=== PATIENT | female | born 1995 | race Caucasian/White ===

== ENCOUNTER 2023-12-02 09:18 | Emergency (ER) | payer OTHER ==
[2023-12-02 10:22] LABS: BASOPHILS # (AUTO) 0.1 10^3/uL (0.0-0.1); BASOPHILS % (AUTO) 1.3 %; EOSINOPHILS % (AUTO) 0.7 %; HCT - HEMATOCRIT 37.9 % (37.0-47.0); HGB - HEMOGLOBIN 12.9 g/dL (12.0-16.0); LYMPHOCYTES # (AUTO) 1.6 10^3/uL (1.5-3.5); LYMPHOCYTES % (AUTO) 25.9 %; MEAN CORPUSCULAR HEMOGLOBIN 31.3 pg (27.0-31.0); MEAN PLATELET VOLUME 8.6 fL (7.9-10.8); MONOCYTES # (AUTO) 0.5 10^3/uL (0.0-1.0); MONOCYTES % (AUTO) 7.8 %; NEUTROPHILS # (AUTO) 3.9 10^3/uL (1.5-6.6); NEUTROPHILS % (AUTO) 64.1 %; PLT - PLATELET COUNT 266 10^3/uL (130-450); RED BLOOD COUNT 4.12 10^6/uL (4.20-5.40); RED CELL DISTRIBUTION WIDTH 12.5 % (12.0-15.0)
[2023-12-02 10:41] LABS: ALBUMIN 4.5 g/dL (3.2-5.5); ALBUMIN/GLOBULIN RATIO 1.9 (1.0-2.2); BILIRUBIN,TOTAL 0.4 mg/dL (0.2-1.0); CALCIUM 9.6 mg/dL (8.5-10.3); CREATININE 0.8 mg/dL (0.6-1.3); TOTAL PROTEIN 6.9 g/dL (6.4-8.9)
--- NOTE | 2023-12-02 11:02 | Ultrasound Report ---
PROCEDURE: OB 1st Trimester w/TV INDICATIONS: 6 weeks with vaginal bleeding OUTSIDE/PRIOR DATING DATA: Last menstrual period (LMP): 10/17/2023. LMP-based estimated date of delivery (YANET): 07/23/2024. TECHNIQUE: Real-time scanning was performed of the fetus and maternal pelvic organs, with image documentation. Endovaginal scanning was also performed to better visualize the fetus and maternal ovaries. COMPARISON: None. FINDINGS: A possible small gestational sac is present in the cervical region. Embryo: No pole or yolk sac is seen. Gestational sac diameter is 7.4 mm. Estimated gestational age is 5 weeks, 3 days. Heart rate: Not detected. Other: No perigestational fluid collection. Measurement variability in dating: +/- 4 weeks by LMP, +/- 7 days by mean sac diameter (use before 6 weeks gestation if crown-rump length not able to be measured), +/- 5 days by crown-rump length (6-12 weeks gestation). Maternal organs: Ovaries appear within normal limits. IMPRESSION: Possible small gestational sac within endocervical canal without pole or cardiac activity . Finding is suggestive of spontaneous in progress, please correlate with serial beta-hCGs a nd follow-up study. Reviewed by: Alfonso Metcalf MD on 12/02/2023 11:01 AM PDT Approved by: Alfonso Metcalf MD on 12/02/2023 11:01 AM PDT Station ID: [id number]
--- NOTE | 2023-12-02 11:05 | ED Physician Documentation ---
PD HPI FEMALE - Stated complaint Stated Complaint: ,SPOTTING - Chief complaint Chief Complaint: Abd Pain - History obtained from History obtained from: Patient - History of Present Illness Timing - onset: How many hours ago (is with EGA 6w4d by dates with positive home preg test week or so ago. Has referral to [facility] in [place]. Onset cramps and vag bleeding this AM. Heavy bleeding initially. Moderate cramping.), Today Timing - duration: Hours Timing - details: Abrupt onset, Still present, Waxing and waning Associated symptoms: Pelvic pain, Vaginal bleeding. 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 (3), P (1), Miscarriage(s) (1) PD PAST MEDICAL HISTORY - Past Medical History Past Medical History: No - Past Surgical History Past Surgical History: No - Allergies Allergies/Adverse Reactions: Allergies Allergy/AdvReac Type Severity Reaction Status Date / Time No Known Drug Allergies Allergy Verified 12/02/23 09:30 - Social History Does the pt smoke?: No Smoking Status: Never smoker Does the pt drink ETOH?: No Does the pt have substance abuse?: No - Immunizations Immunizations are current?: No - POLST Patient has POLST: No PD ED PE NORMAL - Vitals Vital signs reviewed: Yes - General General: Alert and oriented X 3, No acute distress, Well developed/nourished - Cardiac Cardiac: RRR, No murmur - Respiratory Respiratory: Clear bilaterally - Female Female : Deferred - Derm Derm: Normal color, Warm and dry Results - Vitals Vitals: Vital Signs - 24 hr 12/02/23 12/02/23 09:28 11:56 Temperature 36.4 C L Heart Rate 77 80 Respiratory 20 16 Rate Blood Pressure 139/70 H 117/69 O2 Saturation 97 99 Oxygen O2 Source Room air - Labs Labs: Laboratory Tests 12/02/23 12/02/23 12/02/23 10:13 10:13 10:13 WBC 6.0 RBC 4.12 L Hgb 12.9 Hct 37.9 MCV 92.0 MCH 31.3 H MCHC 34.0 RDW 12.5 Plt Count 266 MPV 8.6 Neut # (Auto) 3.9 Lymph # (Auto) 1.6 [place] # (Auto) 0.5 Eos # (Auto) 0.0 Baso # (Auto) 0.1 Absolute Nucleated RBC 0.00 Nucleated RBC % 0.0 Sodium 140 Potassium 4.0 Chloride 108 Carbon Dioxide 26 Anion Gap 6.0 BUN 16 Creatinine 0.8 Estimated GFR (MDRD) 86 L Glucose 94 Calcium 9.6 Total Bilirubin 0.4 AST 14 ALT 12 Alkaline Phosphatase 45 Total Protein 6.9 Albumin 4.5 Globulin 2.4 Albumin/Globulin Ratio 1.9 Lipase 40 Beta HCG, Quant Blood Type O POSITIVE 12/02/23 10:13 WBC RBC Hgb Hct MCV MCH MCHC RDW Plt Count MPV Neut # (Auto) Lymph # (Auto) [place] # (Auto) Eos # (Auto) Baso # (Auto) Absolute Nucleated RBC Nucleated RBC % Sodium Potassium Chloride Carbon Dioxide Anion Gap BUN Creatinine Estimated GFR (MDRD) Glucose Calcium Total Bilirubin AST ALT Alkaline Phosphatase Total Protein Albumin Globulin Albumin/Globulin Ratio Lipase Beta HCG, Quant 3.0 Blood Type - Rads (name of study) OB pelvic US Relevant Findings:: Prelim report reviewed, Other (US Tech: no IUP. Adnexa normal. There is gestational sac c/w 5w3d without pole in cervical canal c/w miscarriage in process. ) PD Medical Decision Making - ED course Complexity details: reviewed results (Pt with minimal quant HCG of 5, with normal adnexa and apparent gestational sac without pole in cervical canal c/w miscarriage in process (with presumed prior IUFD given low quant).Pt had heavy bleeding initially that has tapered much. ), d/w patient, d/w mainframe consultant (Dr. Feliz (sp?), OB in [place] and updated on indings. She will have office contact pt for followup later this week. ) Departure - Departure Disposition: 01 Home, Self Care Clinical Impression: Incomplete miscarriage Condition: Stable Record reviewed to determine appropriate education?: Yes Instructions: ED Miscarriage Incom Follow-Up: [facility] [Provider Group] Comments: This appears to be an incomplete miscarriage. Your quantitative hCG and the blood test was quite low to almost non levels. This would suggest the miscarriage started with the fetus demise and is now subsequently clearing/miscarrying. The ultrasound showed what look like a gestational sac without a pole in the cervix. Presumption would be to will continue to pass out through the cervix over the next day or two. Tylenol ibuprofen if needed for pains or cramps. Stay well-hydrated. Try to follow-up with the [facility] office to which she had been referred for follow-up visit later this week to ensure it does completely clear. Risks for retained miscarriage would be cramping bleeding and infection. Stay well-hydrated. Return to the ER if you have significant bleeding or pain or develop fevers. I will try to contact the [facility] office in [place] to expect to hear from you. As of this moment, they have not called back as yet. Forms: PCP List Discharge Date/Time: 12/02/23 11:58
[2023-12-02 12:14] VITALS: BP 117/69; O2SAT 99
== END 2023-12-02 11:58 | disposition home or self-care (01) ==
LOC: ED 09:18
DX: O03.4 Incomplete spontaneous abortion without complication (principal)
CPT/HCPCS: 36415; 80053; 83690; 84702; 85025; 86900; 86901; 99284

== ENCOUNTER 2024-01-27 15:04 | Emergency (ER) | payer OTHER ==
[2024-01-27 16:34] LABS: BASOPHILS # (AUTO) 0.1 10^3/uL (0.0-0.1); BASOPHILS % (AUTO) 0.7 %; EOSINOPHILS # (AUTO) 0.1 10^3/uL (0.0-0.7); EOSINOPHILS % (AUTO) 1.2 %; HGB - HEMOGLOBIN 13.5 g/dL (12.0-16.0); LYMPHOCYTES # (AUTO) 2.2 10^3/uL (1.5-3.5); MEAN CORPUSCULAR HEMOGLOBIN 30.8 pg (27.0-31.0); MEAN CORPUSCULAR HGB CONC 33.8 g/dL (32.0-36.0); MEAN CORPUSCULAR VOLUME 91.1 fL (81.0-99.0); MEAN PLATELET VOLUME 8.5 fL (7.9-10.8); MONOCYTES # (AUTO) 0.5 10^3/uL (0.0-1.0); MONOCYTES % (AUTO) 5.7 %; NEUTROPHILS # (AUTO) 5.8 10^3/uL (1.5-6.6); NEUTROPHILS % (AUTO) 67.2 %; PLT - PLATELET COUNT 281 10^3/uL (130-450); RED BLOOD COUNT 4.39 10^6/uL (4.20-5.40); RED CELL DISTRIBUTION WIDTH 12.1 % (12.0-15.0); WHITE BLOOD COUNT 8.6 x10^3/uL (4.8-10.8)
--- NOTE | 2024-01-27 16:45 | ED Physician Documentation ---
History of Present Illness - Stated complaint Stated Complaint: ,ABD CRAMPS - Chief complaint Chief Complaint: Abd Pain - History obtained from History obtained from: Patient - History of Present Illness Timing: How many days ago (2) - Additonal information Additional information: Patient is a 28-year-old female, 3 para 1 who presents to the emergency department stating she has had vaginal bleeding. She believes that she is about 6 weeks . She states 2 days ago the bleeding was bright red, today it is dark red. She had a miscarriage in November at approximately 5 weeks. She also has a young child at home. She is followed by OB and [facility]. She has mild abdominal cramping. Review of Systems Constitutional: denies: Fever, Chills Respiratory: denies: Cough, Wheezing Skin: denies: Rash Musculoskeletal: denies: Neck pain, Back pain Neurologic: denies: Headache PD PAST MEDICAL HISTORY - Past Medical History Past Medical History: No - Past Surgical History Past Surgical History: No - Allergies Allergies/Adverse Reactions: Allergies Allergy/AdvReac Type Severity Reaction Status Date / Time No Known Drug Allergies Allergy Verified 01/27/24 15:22 - Social History Does the pt smoke?: No Smoking Status: Never smoker Does the pt drink ETOH?: No Does the pt have substance abuse?: No - Immunizations Immunizations are current?: No - POLST Patient has POLST: No PD ED PE NORMAL - Vitals Vital signs reviewed: Yes - General General: Alert and oriented X 3, No acute distress - HEENT HEENT: PERRL, Moist mucous membranes - Neck Neck: Supple, no meningeal sign - Cardiac Cardiac: RRR, Strong equal pulses - Respiratory Respiratory: No respiratory distress, Clear bilaterally - Abdomen Abdomen: Soft, Non tender, Non distended - Derm Derm: Warm and dry - Neuro Neuro: Alert and oriented X 3 - Psych Psych: Normal mood, Normal affect Results - Vitals Vitals: Vital Signs - 24 hr 01/27/24 01/27/24 15:22 17:25 Temperature 36.3 C L 36.5 C Heart Rate 78 72 Respiratory 18 16 Rate Blood Pressure 112/73 110/72 O2 Saturation 98 100 Oxygen O2 Source Room air - Labs Labs: Laboratory Tests 01/27/24 01/27/24 01/27/24 16:29 16:29 16:29 WBC 8.6 RBC 4.39 Hgb 13.5 Hct 40.0 MCV 91.1 MCH 30.8 MCHC 33.8 RDW 12.1 Plt Count 281 MPV 8.5 Neut # (Auto) 5.8 Lymph # (Auto) 2.2 [place] # (Auto) 0.5 Eos # (Auto) 0.1 Baso # (Auto) 0.1 Absolute Nucleated RBC 0.00 Nucleated RBC % 0.0 Sodium 136 Potassium 3.5 Chloride 104 Carbon Dioxide 24 Anion Gap 8.0 BUN 10 Creatinine 0.7 Estimated GFR (MDRD) 100 Glucose 108 H Calcium 9.5 Total Bilirubin 0.3 AST 14 ALT 11 Alkaline Phosphatase 45 Total Protein 6.6 Albumin 4.5 Globulin 2.1 Albumin/Globulin Ratio 2.1 Lipase 38 Beta HCG, Quant Urine Color Urine Clarity Urine pH Ur Specific [place] Urine Protein Urine Glucose (UA) Urine Ketones Urine Occult Blood Urine Nitrite Urine Bilirubin Urine Urobilinogen Ur Leukocyte Esterase Urine RBC Urine WBC Ur Squamous Epith Cells Amorphous Sediment Urine Bacteria Ur Microscopic Review Urine Culture Comments Blood Type O POSITIVE 01/27/24 01/27/24 16:29 18:28 WBC RBC Hgb Hct MCV MCH MCHC RDW Plt Count MPV Neut # (Auto) Lymph # (Auto) [place] # (Auto) Eos # (Auto) Baso # (Auto) Absolute Nucleated RBC Nucleated RBC % Sodium Potassium Chloride Carbon Dioxide Anion Gap BUN Creatinine Estimated GFR (MDRD) Glucose Calcium Total Bilirubin AST ALT Alkaline Phosphatase Total Protein Albumin Globulin Albumin/Globulin Ratio Lipase Beta HCG, Quant 47551.7 Urine Color YELLOW Urine Clarity TURBID Urine pH 7.5 Ur Specific [place] 1.020 Urine Protein NEGATIVE Urine Glucose (UA) NEGATIVE Urine Ketones NEGATIVE Urine Occult Blood NEGATIVE Urine Nitrite NEGATIVE Urine Bilirubin NEGATIVE Urine Urobilinogen 0.2 (NORMAL) Ur Leukocyte Esterase NEGATIVE Urine RBC 0-5 Urine WBC 4-5 Ur Squamous Epith Cells MOD Squamous H Amorphous Sediment Marked Urine Bacteria Few Ur Microscopic Review INDICATED Urine Culture Comments NOT INDICATED Blood Type - Rads (name of study) Pelvic ultrasound Relevant Findings:: Final report received, See rad report PD Medical Decision Making - ED course Complexity details: reviewed results, re-evaluated patient, considered differential, d/w patient ED course: 28-year-old female here with vaginal bleeding affecting early . Ultrasound shows an intrauterine approximately 6 weeks. There is a heart rate present as well. hCG is approximately 30,000 and she will have this repeated with her OB. No evidence of ectopic at this time. No other significant lab abnormalities. Urinalysis not consistent with infection. We will continue supportive care and have her follow-up with her doctor for further care. Patient counseled regarding signs and symptoms for which I believe and urgent re-evaluation would be necessary. Patient with good understanding of and agreement to plan and is comfortable going home at this time This document was made in part using voice recognition software. While efforts are made to proofread this document, sound alike and grammatical errors may occur. Departure - Departure Disposition: Home, Self Care Clinical Impression: Vaginal bleeding affecting early Condition: Good Instructions: ED Miscarriage Poss Follow-Up: DANNI WADE [Primary Care Provider] - Comments: Your hCG level today is 30,375.7. Your ultrasound shows an intrauterine approximately 6 weeks estimated gestational age. With a heart rate present. Please follow-up with your OB for further care. Please return if you worsen. PROCEDURE: OB 1st Trimester w/TV INDICATIONS: vaginal bleeding 7weeks 4 days OUTSIDE/PRIOR DATING DATA: Last menstrual period (LMP): 10/17/2023. First dating scan (date and location): 01/27/2024. Estimated date of delivery (YANET) from first dating scan: 09/21/2024. TECHNIQUE: Real-time scanning was performed of the fetus and maternal pelvic organs, with image documentation. Endovaginal scanning was also performed to better visualize the fetus and maternal ovaries. COMPARISON: None. FINDINGS: Intrauterine gestational sac present. Embryo: pole with crown-rump length measuring 0.36 cm, consistent with 6 weeks and 0 days. Heart rate: 112 bpm. Other: Normal yolk sac is present. Simple fluid collection within the lower uterine segment measuring 9 x 6 x 8 mm. Measurement variability in dating: +/- 4 weeks by LMP, +/- 7 days by mean sac diameter (use before 6 weeks gestation if crown-rump length not able to be measured), +/- 5 days by crown-rump length (6- 12 weeks gestation). Maternal organs: Ovaries appear within normal limits. Right ovarian corpus pseudocyst measuring up to 3.5 cm. IMPRESSION: 1.Single live intrauterine consistent with 6 weeks and 0 days. 2.Small fluid collection within the lower uterine segment measuring up to 9 mm, attention on follow- up. May represent a nabothian cyst. Forms: PCP List Discharge Date/Time: 01/27/24 18:47
[2024-01-27 16:50] LABS: ALBUMIN 4.5 g/dL (3.2-5.5); ALBUMIN/GLOBULIN RATIO 2.1 (1.0-2.2); BILIRUBIN,TOTAL 0.3 mg/dL (0.2-1.0); CALCIUM 9.5 mg/dL (8.5-10.3); CREATININE 0.7 mg/dL (0.6-1.3); POTASSIUM 3.5 mmol/L (3.5-4.5); TOTAL PROTEIN 6.6 g/dL (6.4-8.9)
--- NOTE | 2024-01-27 17:18 | Ultrasound Report ---
PROCEDURE: OB 1st Trimester w/TV INDICATIONS: vaginal bleeding 7weeks 4 days OUTSIDE/PRIOR DATING DATA: Last menstrual period (LMP): 10/17/2023. First dating scan (date and location): 01/27/2024. Estimated date of delivery (YANET) from first dating scan: 09/21/2024. TECHNIQUE: Real-time scanning was performed of the fetus and maternal pelvic organs, with image documentation. Endovaginal scanning was also performed to better visualize the fetus and maternal ovaries. COMPARISON: None. FINDINGS: Intrauterine gestational sac present. Embryo: pole with crown-rump length measuring 0.36 cm, consistent with 6 weeks and 0 days. Heart rate: 112 bpm. Other: Normal yolk sac is present. Simple fluid collection within the lower uterine segment measuring 9 x 6 x 8 mm. Measurement variability in dating: +/- 4 weeks by LMP, +/- 7 days by mean sac diameter (use before 6 weeks gestation if crown-rump length not able to be measured), +/- 5 days by crown-rump length (6-12 weeks gestation). Maternal organs: Ovaries appear within normal limits. Right ovarian corpus pseudocyst measuring up t o 3.5 cm. IMPRESSION: 1.Single live intrauterine consistent with 6 weeks and 0 days. 2.Small fluid collection within the lower uterine segment measuring up to 9 mm, attention on follow-u p. May represent a nabothian cyst. Reviewed by: Naveed Rojas MD on 01/27/2024 5:17 PM PDT Approved by: Naveed Rojas MD on 01/27/2024 5:17 PM PDT Station ID: [id number]
[2024-01-27 18:10] VITALS: BP 110/72; O2SAT 100
[2024-01-27 18:35] LABS: BILIRUBIN,URINE NEGATIVE (NEGATIVE); GLUCOSE, URINE (UA) NEGATIVE (NEGATIVE); KETONES,URINE (UA) NEGATIVE (NEGATIVE); LEUKOCYTE ESTERASE, URINE NEGATIVE (NEGATIVE); NITRITE,URINE NEGATIVE (NEGATIVE); OCCULT BLOOD,URINE NEGATIVE (NEGATIVE); PH,URINE 7.5 PH (5.0-7.5); PROTEIN,URINE NEGATIVE (NEGATIVE); UROBILINOGEN,URINE 0.2 (NORMAL) E.U./dL (NORMAL)
[2024-01-27 18:36] LABS: CLARITY,URINE TURBID (CLEAR)
[2024-01-27 18:48] LABS: BACTERIA,URINE Few /HPF (None Seen); RBC,URINE 0-5 /HPF (0-5); SQUAMOUS EPITHELIAL CELL,UR MOD Squamous (<= Few)
[2024-01-27 18:49] LABS: AMORPHOUS SEDIMENT,UR Marked /LPF
== END 2024-01-27 18:47 | disposition home or self-care (01) ==
LOC: ED 15:04
DX: O20.9 Hemorrhage in early pregnancy, unspecified (principal); Z3A.01 Less than 8 weeks gestation of pregnancy
CPT/HCPCS: 36415; 80053; 81001; 81003; 83690; 84702; 85025; 86900; 86901; 87086; 99283; 99284